=== PATIENT | male | born 1965 | race Hispanic/Latino ===

== ENCOUNTER 2018-10-02 12:12 | Observation (INO) | payer BC, OTHER ==
[2018-10-02] MEDS ORDERED: ONDANSETRON HCL 4 MG/2 ML VIAL ONE (12:38)
[2018-10-02] MEDS ORDERED: CLINDAMYCIN 900 MG/D5% WATER 50 ML IV ONE (12:38)
[2018-10-02] MEDS ORDERED: ACETAMINOPHEN 325 MG TAB ONE (12:39)
[2018-10-02] MEDS ORDERED: SODIUM CHLORIDE 0.9% 1000ML 1,000 ML IV ONE (12:39)
[2018-10-02] MEDS ORDERED: LABETALOL 20 MG/4 ML DISP.SYRIN IV ONE (12:39)
[2018-10-02] MEDS ORDERED: MORPHINE SULFATE 4 MG/1ML SYG ONE (12:40)
[2018-10-02 12:42] LABS: BASOPHILS % (AUTO) 0.8 % (0.0-5.0); EOSINOPHILS % (AUTO) 0.4 % (0.0-8.0); HEMATOCRIT 53.1 % (42-54); LYMPHOCYTES % (AUTO) 17.4 % (21.0-51.0); MEAN CORPUSCULAR HEMOGLOBIN 29.2 pg (27.0-33.0); MEAN CORPUSCULAR HGB CONC 34.2 g/dL (32.0-36.0); MEAN CORPUSCULAR VOLUME 85.3 fL (79-99); MONOCYTES % (AUTO) 11.2 % (3.0-13.0); NEUTROPHILS % (AUTO) 70.2 % (40.0-77.0); NUCLEATED RED BLOOD CELLS 0.2 % (0.0-0.19); PLATELET COUNT (AUTO) 187 K/uL (130-400); RED BLOOD CELL COUNT(AUTO) 6.23 MIL/uL (4.50-6.20); WHITE BLOOD COUNT (AUTO) 8.9 K/uL (4.8-10.8)
[2018-10-02 13:01] LABS: CREATININE 1.1 mg/dL (0.5-1.5); POTASSIUM 3.8 mmol/L (3.5-5.1)
[2018-10-02 13:06] LABS: ALBUMIN 3.7 g/dL (3.5-5.0); BILIRUBIN,TOTAL 1.6 mg/dL (0.2-1.0); TOTAL PROTEIN, SERUM 7.7 g/dL (6.0-8.3)
[2018-10-02] MEDS ORDERED: IOHEXOL-350 50ML VIAL IV ONE (13:33)
[2018-10-02 13:54] LABS: ERYTHROCYTE SEDIMENTATION RATE 6 MM/HR (0-20)
[2018-10-02] MEDS ORDERED: HYDRALAZINE HCL 20 MG/ML VIAL IV PRN (17:00)
[2018-10-02] MEDS ORDERED: HYDROCODONE/ACETAMINOPHEN 5/325 MG TAB PO PRN (17:00)
[2018-10-02] MEDS ORDERED: HYDROCODONE/ACETAMINOPHEN 10/325 MG TAB ONE (18:25)
[2018-10-02] MEDS ORDERED: CLINDAMYCIN 600 MG/D5% WATER 50 ML IV ONE (19:19)
[2018-10-02] MEDS ORDERED: SODIUM CHLORIDE 0.9% 0 ML IV ONE (19:19)
[2018-10-02] MEDS ORDERED: HYDRALAZINE HCL 20 MG/ML VIAL ONE (19:26)
[2018-10-02] MEDS: METOPROLOL TARTRATE 25 MG TAB PO SCH (21:00)
[2018-10-02] MEDS ORDERED: METOPROLOL TARTRATE 25 MG TAB ONE (21:12)
[2018-10-02 21:45] VITALS: BP 167/105
[2018-10-02 23:30] VITALS: BP 153/93
[2018-10-02] MEDS: CLINDAMYCIN 600 MG/D5% WATER 50 ML IV SCH (23:48)
[2018-10-03 03:30] VITALS: BP 166/100
[2018-10-03 04:29] LABS: HEMATOCRIT 45.8 % (42-54); MEAN CORPUSCULAR HGB CONC 35.2 g/dL (32.0-36.0); MEAN CORPUSCULAR VOLUME 85.2 fL (79-99); PLATELET COUNT (AUTO) 192 K/uL (130-400); RED BLOOD CELL COUNT(AUTO) 5.38 MIL/uL (4.50-6.20); RED CELL DISTRIBUTION WIDTH 13.1 % (11.0-15.5); WHITE BLOOD COUNT (AUTO) 7.7 K/uL (4.8-10.8)
[2018-10-03 04:43] LABS: POTASSIUM 3.5 mmol/L (3.5-5.1)
[2018-10-03] MEDS: CLINDAMYCIN 600 MG/D5% WATER 50 ML IV SCH ×2 (05:01→12:10)
[2018-10-03 07:52] VITALS: BP 179/108
[2018-10-03] MEDS: METOPROLOL TARTRATE 25 MG TAB PO SCH (08:13)
[2018-10-03] MEDS ORDERED: LISINOPRIL 40 MG TABLET PO SCH (09:00)
[2018-10-03] MEDS ORDERED: AMLODIPINE BESYLATE 5 MG TAB PO SCH (09:00)
[2018-10-03] MEDS ORDERED: ENOXAPARIN SODIUM 40 MG/0.4 ML SYRINGE SQ SCH (09:00)
[2018-10-03] MEDS ORDERED: PANTOPRAZOLE SODIUM 40 MG TABLET.DR PO SCH (09:00)
[2018-10-03] MEDS ORDERED: CLIN300C9 PO (09:57)
[2018-10-03 10:00] VITALS: BP 180/111
[2018-10-03] MEDS ORDERED: METO25TA6 PO (10:08)
[2018-10-03] MEDS ORDERED: LISI40TA4 PO (10:08)
[2018-10-03 11:23] VITALS: BP 137/89
== END 2018-10-03 14:24 | disposition home or self-care (01) ==
LOC: EDH 12:12 → INTOOBSV 16:50 → EDHIP 16:50 → OBSVTOIN 16:50 → 4AH 20:39
PROVIDERS: ADMIT Hospitalist; ATTEND Hospitalist
DX: L03.211 Cellulitis of face (principal); I10 Essential (primary) hypertension; J34.2 Deviated nasal septum; Z91.14 Patient's other noncompliance with medication regimen
CPT/HCPCS: 36415 ×2; 70487; 80053 ×2; 83605; 85025; 85027; 85651; 87040 ×2; 93005; 96365; 96366; 96372; 96375; 99283; G0378 ×22; J0360 ×2; J1650; J2270; J2405; J3490 ×5; J7030; Q9967